=== PATIENT | female | born 2000 | race Caucasian/White ===

== ENCOUNTER 2025-05-23 11:02 | Day surgery (SDC) | payer OTHER, SELFPAY ==
[2025-05-22 12:21] VITALS: BMI 29.4
[2025-05-23] VITALS (8 sets, daily range): BP systolic 103–132; BP diastolic 55–74; PULSE 74–98; RESP 16–21; TEMP 36.2–36.9; O2SAT 99–100
--- NOTE | 2025-05-23 | PATH_ITS ---
[facility] Accession Number: [id number] No. of containers..01 Tissue . 01 Material submitted: . product of conception - PRODUCTS OF CONCEPTION . 01 Diagnosis: PRODUCTS OF CONCEPTION: Decidua and immature chorionic villi, consistent with products of conception. Negative for tissue. Negative for maligancny. MRV 05/30/2025 1750 Local . 01 Electronically signed: . Maribell Ireland DO, Pathologist NPI- [id number] . 01 Gross description: . Received in formalin labeled with two patient identifiers and products of conception, and consists of an 8.5 x 5.5 x 2.0 cm aggregate of clotted blood, fibromembranous tissue and possible villous tissue. No tissue is appreciated. Transcription sections of the possible villous tissue are submitted in cassettes A1-A3. ([id number]) /GAURAV 05/26/2025 1916 Local . 01 Pathologist provided ICD-10: O03.4 . 01 CPT . 713565 Specimen Comment: A courtesy copy of this report has been sent to [facility] Performed at: [address] [address], [place], [place] [id number] MD Luis Cruz MD Phone: [phone]
[2025-05-23] MEDS: LACTATED RINGERS 1,000 ML 42 ML IV ×2 (11:39→13:56)
[2025-05-23] MEDS: ACETAMINOPHEN IV 1,000 MG/100 ML VIAL 400 MG IV (11:42)
--- NOTE | 2025-05-23 12:06 | PM.PREOP ---
Pre-operative Note Interval Note History & Physical reviewed/Exam performed by Physician: Yes Changes to H&P: No ASA Class (for procedural sedation): II
--- NOTE | 2025-05-23 12:48 | SUR.OPER ---
Lithotomy on padded OR bed, head on pillow, arms secured on padded arm boards at <90 degrees abduction. Legs secured in padded yellow fins stirrups.
[2025-05-23] MEDS: SILVER NITRATE STICK 1 EACH TOP (12:59)
--- NOTE | 2025-05-23 13:04 | PM.OP.1 ---
Operative Date/Time/Diagnoses Date of procedure: 05/23/25 Time of procedure: 13:05 Pre-op diagnosis: incomplete SAB ~9wga, bicornuate uterus Post-op diagnosis: same Procedure & Clinicians Procedure: suction dilation and curettage Same procedure(s) as scheduled: Yes Indications: incomplete SAB at 9wga, bicornuate uterus Surgeon: Lola Gooden Assisted?: No Anesthesia Type: General Operative Notes Findings: normal external female genitalia patulous cervix without active bleeding intrauterine contents visually consistent with products of conception Applied: none Estimated Blood Loss (mL): 25 Blood products transfused: none Procedure in detail: Pt was taken to the operating room, transferred to OR table and anesthesia was induced with placement of LMA.? Pt had her legs placed in Mina stirrups and exam under anesthesia was performed.? The patient was prepped and draped in a sterile fashion.? A time out was performed.? A transabdominal US was performed with visualization of the uterus as well as the thickened endometrium of both uterine horns. A sterile speculum was inserted into the vagina.? The cervix was visualized and grasped anteriorly using a single tooth tenaculum.? The uterus sounded to 14cm and the cervical os was serially dilated using Marcano dilators to allow for adequate passage of suction catheter.? The 10mm curved suction curette was inserted into the uterus and the uterine contents were evacuated. Serial interval transabdominal US performed with confirmed evacuation of uterine contents, thin EMS visualized x2. Uterine contents were visually inspected and noted to be consistent with products of conception.?Hemostasis was noted.? The tenaculum was removed and hemostasis was noted at insertion sites after brief application of silver nitrate.? Speculum removed.? Hemostasis was again confirmed to be excellent.? The patient then had her legs taken out of stirrups.? The patient tolerated the procedure well and without difficulty.? The patient was awakened from anesthesia and taken to PACU in stable condition. Complications: none Post-operative Condition: stable Disposition: PACU Plan for aftercare: anticipate dc to home pending routine postop recovery, outpatient f/u in office as scheduled
[2025-05-23] MEDS: DOXYCYCLINE HYCLATE 100 MG TABLET 200 MG PO (13:48)
== END 2025-05-23 14:33 | disposition home or self-care (01) ==
PROVIDERS: Referring Provider Emergency Medicine; Visit Provider Obstetrics & Gynecology
PROC: (CPT 58120; principal; 2025-05-23 12:15)
DX: O03.4 Incomplete spontaneous abortion without complication (principal); Q51.3 Bicornate uterus; Z3A.09 9 weeks gestation of pregnancy
CPT/HCPCS: 59812; J0131; J1100; J1885; J2250; J2405; J2704; J7120

== ENCOUNTER → 2025-07-01 14:16 | Outpatient (CLI) | payer OTHER, SELFPAY ==
--- NOTE | 2025-07-01 14:17 | DI.MRI.S_ITS ---
PROCEDURE: MR PELVIS WO/W CON INDICATIONS: evaluate for mullerian anomaly, isthmocele- location of POCs TECHNIQUE: Coronal HASTE, sagittal breath-hold T2 FSE; axial T1 FSE with and without fat saturation through the pelvis. Optional long- and short-axis uterine nonbreath-hold T2 FSE through the uterus. Sagittal or axial dynamic VIBE during administration of contrast. Post-contrast axial or coronal VIBE/2-D FLASH with fat saturation from the iliac crests to the symphysis. Optional diffusion weighted imaging and ADC may be performed. COMPARISON: [facility], , PELVIC COMPLETE, 06/22/2025, 16:52. [facility], , PELVIC COMPLETE, 06/06/2025, 14:01. FINDINGS: Image quality: Diagnostic Lower abdomen: No bowel obstruction. No drainable ascites. Small amount pelvic free fluid is probably physiologic Bladder: Distended Reproductive organs: The outer contour for of the uterus shows no significant concave depression at the fundus. Probable partial septate configuration the right endometrium is mildly prominent at 7 mm. The left side of the endometrium is nonthickened Endometrial filling defect is seen in the lower uterine segment partially extending to the right side (34/13) measuring 2.4 x 1.3 x 1.4 cm. Intrinsically T1 hyperintense products are present. Unremarkable cervix. Lower uterine segment isthmocele is seen thickness 0.8 cm. Multiple follicles are seen in the ovaries. No significant solid or cystic mass identified Rectum: Moderate fecal loading and rectal gas burden Vessels and lymph nodes: No enlarged lymph nodes by size criteria. No aneurysmal artery identified. Pelvic wall: Unremarkable Bones: No aggressive appearing osseous abnormality. IMPRESSION: Suspect partial uterine septum. Endometrial filling defect is seen in the lower uterine segment, attaching to the septum, partially extending to the right uterine horn , representing products of conception versus other benign or malignant endometrial lesion. Intrinsic T1 signal within the endometrium likely blood products. The right uterine horn is mildly thickened compared to the left. Gynecologic follow-up recommended. Lower uterine segment isthmocele is seen. Dictated by: Brandon Correa M.D. on 07/02/2025 at 14:26 Approved by: Brandon Correa M.D. on 07/02/2025 at 14:44
== END ==
LOC: MRI 14:16
PROVIDERS: Referring Provider Obstetrics & Gynecology; Visit Provider Obstetrics & Gynecology
DX: N85.A Isthmocele (principal); O03.4 Incomplete spontaneous abortion without complication; Q51.818 Other congenital malformations of uterus
CPT/HCPCS: 72197; A9579